=== PATIENT | female | born 2000 | race Caucasian/White ===

== ENCOUNTER 2021-02-07 00:20 | Emergency (ER) | payer BC ==
[2021-02-07 01:07] LABS: CHLORIDE,CL 103 mEq/L (98-106); SODIUM,NA 141 mEq/L (136-145)
--- NOTE | 2021-02-07 01:16 | EDM.PDOC ---
ED HPI GENERAL MEDICAL PROBLEM - General Chief Complaint: Back Pain or Injury Stated Complaint: back spasm Time Seen by Provider: 02/07/21 00:57 Source of Information: Reports: Patient, EMS, RN History Limitations: Reports: No Limitations - History of Present Illness INITIAL COMMENTS - FREE TEXT/NARRATIVE: States that she was helping load some tires earlier today. She then went to help a friend and she leaned over a pickup and when she went to stand up after she had been bent over slightly and started to have back pain. She states that she has lumbar pain that is equal both to the left and the right side. No radiation down her legs. Pain is worse when she moves. Has never had pain like this in the past. Onset: Today Location: Reports: Back Quality: Reports: Sharp, Stabbing Bilateral Back Pain Score (Numeric/FACES): 10 - Related Data Allergies Allergy/AdvReac Type Severity Reaction Status Date / Time Penicillins Allergy Unknown Hives Verified 02/07/21 00:51 Past Medical History - Past Health History Medical/Surgical History: Denies Medical/Surgical History ED ROS GENERAL - Review of Systems Review Of Systems: See Below Constitutional: Reports: No Symptoms Respiratory: Reports: No Symptoms Cardiovascular: Reports: No Symptoms GI/Abdominal: Reports: No Symptoms Musculoskeletal: Reports: Back Pain. Denies: Leg Pain ED EXAM,LOWER BACK PAIN/INJURY - Physical Exam Exam: See Below Exam Limited By: No Limitations General Appearance: Alert, WD/WN GI/Abdominal: Normal Bowel Sounds, Soft, Tender (to the lower abdomen as she states that she currently has her period.) Back Exam: Normal Inspection, Muscle Spasm (Has tenderness across the lower back with movement.), Paraspinal Tenderness Neurological: Alert, Oriented x 3 Skin Exam: Warm, Dry, Intact Course - Vital Signs Last Recorded V/S: Last Vital Signs Temp 97.9 F 02/07/21 00:20 Pulse 98 02/07/21 00:20 Resp 17 02/07/21 00:20 BP 130/78 02/07/21 00:20 Pulse Ox 98 02/07/21 00:20 - Orders/Labs/Meds Orders: Active Orders 24 hr Category Date Time Status Lumbar Spine 2 or 3V [CR] Stat Exams 02/07/21 00:53 Taken Labs: Laboratory Tests 02/07/21 02/07/21 02/07/21 Range/Units 00:45 00:47 00:47 WBC 6.8 (4.0-11.0) 10^3/uL RBC 4.44 (4.00-5.50) x10^6/uL Hgb 12.5 (12.0-16.0) g/dL Hct 36.4 L (37.0-47.0) % MCV 82.0 L (83.0-97.0) fL MCH 28.2 (27.0-32.0) pg MCHC 34.3 (32.0-36.0) g/dL RDW Coeff of Jada 12.3 (11.0-15.0) % Plt Count 359 (150-400) 10^3/uL Immature Gran % (Auto) 0.3 (0.0-4.9) % Neut % (Auto) 42.7 (41-71) % Lymph % (Auto) 43.2 (24-44) % [place] % (Auto) 10.1 H (0-10) % Eos % (Auto) 3.1 (0-6) % Baso % (Auto) 0.6 (0-1) % Neut # (Auto) 2.91 (1.80-8.00) x10^3/uL Lymph # (Auto) 2.94 (0.60-5.00) 10^3/uL [place] # (Auto) 0.69 (0.00-1.50) 10^3/uL Eos # (Auto) 0.21 (0.00-1.50) 10^3/uL Baso # (Auto) 0.04 (0.00-0.50) 10^3/uL Immature Gran # (Auto) 0.02 (0.00-0.49) 10^3/uL Sodium 141 (136-145) mEq/L Potassium 3.8 (3.5-5.0) mEq/L Chloride 103 (98-106) mEq/L Carbon Dioxide 24 (21-32) mmol/L BUN 7 (7-18) mg/dL Creatinine 0.8 (0.6-1.0) mg/dL Est Cr Clr Drug Dosing TNP Estimated GFR (MDRD) > 60 (>=60) mL/min Glucose 97 (75-99) mg/dL Calcium 9.0 (8.4-10.1) mg/dL Urine Color Red (YELLOW) Urine Appearance Turbid (CLEAR) Urine pH 8.5 H (4.5-8.0) Ur Specific [place] 1.015 (1.003-1.020) Urine Protein >=300 H (NEGATIVE) mg/dL Urine Glucose (UA) Negative (NEGATIVE) mg/dL Urine Ketones 15 H (NEGATIVE) mg/dL Urine Occult Blood Large H (NEGATIVE) Urine Nitrite Negative (NEGATIVE) Urine Bilirubin Negative (NEGATIVE) Urine Urobilinogen 2.0 H (0.2-1.0) EU/dL Ur Leukocyte Esterase Negative (NEGATIVE) Urine RBC Packed H (0-5) /HPF Urine WBC 0-5 (0-5) /HPF Ur Squamous Epith Cells Few H (NOT SEEN) /HPF Urine Bacteria Few H (NOT SEEN) /HPF Urinalysis Comment Meds: Medications Discontinued Medications Generic Name Dose Route Start Last Admin Trade Name Freq PRN Reason Stop Dose Admin Cyclobenzaprine HCl 1 packet 02/07/21 02:09 Take Home: Cyclobenzaprine 10 Mg Tab, 4 Tab Pack PO 02/07/21 02:10 ONETIME ONE Ketorolac Tromethamine 60 mg 02/07/21 01:08 02/07/21 01:23 Ketorolac 60 Mg/2 Ml Sdv IM 02/07/21 01:09 60 mg ONETIME ONE Administration Ketorolac Tromethamine 1 packet 02/07/21 02:09 Take Home: Ketorolac 10 Mg Tab, 4 Tab Pack PO 02/07/21 02:10 ONETIME ONE Orphenadrine Citrate 60 mg 02/07/21 01:09 02/07/21 01:19 Orphenadrine 60 Mg/2 Ml Inj IM 02/07/21 01:10 60 mg ONETIME ONE Administration - Re-Assessments/Exams Free Text/Narrative Re-Assessment/Exam: 02/07/21 02:08 Is able to sit up in chair with minimal pain. No radiation of the pain down the legs bilaterally. Feels that the pain is better now. Departure - Departure Time of Disposition: 02:23 Disposition: Home, Self-Care 01 Clinical Impression: Back spasm - Discharge Information *PRESCRIPTION DRUG MONITORING PROGRAM REVIEWED*: Not Applicable *COPY OF PRESCRIPTION DRUG MONITORING REPORT IN PATIENT LADAN: Not Applicable Forms: ED Department Discharge Additional Instructions: Flexeril 10 g every 6 hours as needed for muscle spasms ketorolac every 8 hours as needed for pain and swelling If Pain does not improve at home call the clinic and we can set you up for physical therapy [phone] Heating pad as tolerated Hot shower to help with the spasms. [facility] 8:30 in the morning. Sepsis Event Note (ED) - Focused Exam Vital Signs: Vital Signs Temp Pulse Resp BP Pulse Ox 02/07/21 00:20 97.9 F 98 17 130/78 98 - Problem List & Annotations (1) Back spasm SNOMED Code(s): 005530528 Code(s): M62.830 - MUSCLE SPASM OF BACK Status: Acute Priority: High - Problem List Review Problem List Initiated/Reviewed/Updated: Yes - My Orders Last 24 Hours: My Active Orders 02/07/21 00:53 Lumbar Spine 2 or 3V [CR] Stat - Assessment/Plan Last 24 Hours: My Active Orders 02/07/21 00:53 Lumbar Spine 2 or 3V [CR] Stat
[2021-02-07] MEDS: Orphenadrine 60 MG/2 ML Inj IM ONE (01:19)
[2021-02-07] MEDS: Ketorolac 60 MG/2 ML SDV IM ONE (01:23)
[2021-02-07] MEDS ORDERED: Ketorolac 10 MG Tab ONE (02:03)
[2021-02-07] MEDS ORDERED: Cyclobenzaprine 10 MG Tab ONE (02:03)
[2021-02-07] MEDS: Take Home: Ketorolac 10 MG Tab, 4 Tab Pack PO ONE (02:30)
[2021-02-07] MEDS: Take Home: Cyclobenzaprine 10 MG Tab, 4 Tab Pack PO ONE (02:30)
== END 2021-02-07 02:48 | disposition home or self-care (01) ==
LOC: CC.ED 00:20
DX: M62.830 Muscle spasm of back (principal); Z88.0 Allergy status to penicillin
CPT/HCPCS: 36415; 72100; 80048; 81001; 85025; 96372; 99284-25; A9270-GY; J1885; J2360

== ENCOUNTER 2022-01-10 15:20 | Emergency (ER) | payer BC ==
[2022-01-10] MEDS ORDERED: Sodium Chloride 0.9% 10 ML Syringe FLUSH PRN (15:42)
[2022-01-10] MEDS ORDERED: Ondansetron 4 MG/2 ML SDV IVPUSH ONE (15:54)
[2022-01-10] MEDS ORDERED: Sodium Chloride 0.9% 1,000 ML IV ONE (15:54)
[2022-01-10 16:20] LABS: CHLORIDE,CL 102 mEq/L (98-106); SODIUM,NA 141 mEq/L (136-145)
[2022-01-10] MEDS ORDERED: Metoclopramide 10 MG/2 ML SDV ONE (16:40)
[2022-01-10] MEDS ORDERED: diphenhydrAMINE 50 MG/ML SDV IVPUSH ONE (16:44)
[2022-01-10] MEDS ORDERED: Sodium Chloride 0.9% 100 ML IV SCH (16:45)
[2022-01-10] MEDS ORDERED: Potassium Chloride 10% 20 MEQ/15 ML Soln 15 ML UD Cup PO ONE (18:24)
== END 2022-01-10 18:30 | disposition home or self-care (01) ==
LOC: CC.ED 15:20
DX: R51.9 Headache, unspecified (principal); E87.6 Hypokalemia; Z88.0 Allergy status to penicillin
CPT/HCPCS: 36415; 70450; 71046; 80053; 81001; 81025; 84443; 84484; 85025; 85379; 87210; 93005; 96361; 96374; 96375; 99284; 99284-25; A9270-GY; J1200; J2405; J2765; J7030